=== PATIENT | male | born 1985 | race Caucasian/White ===

== ENCOUNTER 2017-01-27 19:42 | Emergency (ER) | payer SELFPAY ==
[2017-01-27 19:45] VITALS: BP 134/74; PULSE 82; RESP 16; TEMP 99.2; O2SAT 99
[2017-01-27] MEDS ORDERED: PROPARACAINE HCL 0.5% OPHT SOLN 15 ML BTL EACH EYE ONE (21:15)
[2017-01-27] MEDS ORDERED: TETANUS/DIPHTHERIA TOXOID ADULT 0.5 ML VIAL IM ONE (21:15)
--- NOTE | 2017-01-27 21:17 | PD ---
HPI Chief Complaint: Eye Problems/Injury Time Seen by Provider: 21:13 Travel History International Travel<30 days: No Contact w/Intl Traveler<30days: No Traveled to known affect area: No History of Present Illness HPI 31-year-old male presents emergency Department with complaints of left eye pain. He states that is been bothering her now for 2 days. He has had clear draining during the day and some mucus in the morning. Positive for body sensation. Minimal blurred vision. He denies any trauma. He does work with signs but wears protective glasses. He denies glasses or contacts. No recent illness. He has not had a tetanus shot over 5 years. PFSH Past Medical History Medical History: Denies Significant Hx Diminished Hearing: No Tetanus Vaccination: > 5 Years Past Surgical History Surgical History: No Previous Surgery Social History Alcohol Use: No Tobacco Use: No Substance Use: No Allergies-Medications (Allergen,Severity, Reaction): Coded Allergies: No Known Allergies (Unverified , 01/27/17) Reported Meds & Prescriptions Reported Meds & Active Scripts Active Lortab (Hydrocodone-Acetaminophen) 5-325 Mg Tab 1 Tab PO Q4H PRN Tobrex Opth Oint (Tobramycin Sulfate) 0.3 % Oint 1 Applic LEFT EYE QID Review of Systems Except as stated in HPI: all other systems reviewed are Neg Eyes: Positive: Blurred Vision, Drainage, Redness, Foreign Body Sensation, Pain , Tearing, Visual changes, No: Diploplia, Photophobia, Blindness Physical Exam Narrative GENERAL: Well-developed, well-nourished in no acute distress. Nontoxic appearing. HEAD: Normocephalic, atraumatic. EYES: Pupils equal round and reactive. Extraocular motions intact. No scleral icterus. No injection or drainage in the right eye. The left eye is injected. He has clear tearing. There is a foreign-body noted in the central vision of the left eye. Lids are flipped and no foreign body seen under the lids. I have removed the foreign body with a contact applicator. There is a remaining rust ring which has been 80% removed with an 18-gauge needle. Fluorescein stain reveals a large corneal defect from the foreign body removal. No Jody sign. ENT: TMs clear without erythema. The external auditory canals clear. Nose: clear . Posterior pharynx is pink and moist. No tonsillar edema or exudate. Uvula midline. Airway patent. NECK: Trachea midline.Supple, nontender, moves head freely. No central bony tenderness or spasm. CARDIOVASCULAR: Regular rate and rhythm without murmurs, gallops, or rubs. RESPIRATORY: Clear to auscultation. Breath sounds equal bilaterally. No wheezes , rales, or rhonchi. GASTROINTESTINAL: Abdomen soft, non-tender, nondistended. No hepato-splenomegaly , or palpable masses. No guarding. EXTREMITIES: No clubbing, cyanosis, or edema. No joint tenderness, effusion, or edema noted. BACK: Nontender without deformity or crepitance. No flank tenderness. Data Data Last Documented VS Vital Signs Date Time Temp Pulse Resp B/P Pulse Ox O2 Delivery O2 Flow Rate FiO2 01/27/17 20:56 18 01/27/17 19:45 99.2 82 134/74 99 Room Air Orders Tetanus/Diphtheria Tox Adult (Tetanus/Di (01/27/17 21:15) Proparacaine 0.5% Opth Soln (Alcaine 0.5 (01/27/17 21:15) Tobramycin 0.3% Opth Oint (Tobrex 0.3% O (01/27/17 21:45) Acetamin-Hydrocod 325-5 Mg ([place] 5-325 (01/27/17 21:45) MDM Medical Decision Making Medical Screen Exam Complete: Yes Emergency Medical Condition: Yes Medical Record Reviewed: Yes Differential Diagnosis MDM: High Differential diagnoses: Acute conjunctivitis (bacterial, viral, allergic, traumatic), glaucoma, iritis, traumatic globe injury, foreign body, corneal abrasion, corneal ulcer, diabetic retinopathy, photokeratitis, herpes keratitis , CMV retinitis Narrative Course Patient's tetanus status updated. Patient's given tobramycin ophthalmic ointment to the eye. Patient had a foreign body in the left eye which was removed but he has a remaining rust ring. He is aware that there is a rust ring and will need to have this removed by the collection systems modeler. He is referred to the collection systems modeler tomorrow. This is left eye foreign body removal, rust ring Procedures Procedure Narrative Left eye foreign body: 2 drops of Alcaine are instilled in the left eye. Using a cotton tip applicator the foreign body is removed. There is a remaining rust ring. Approximately 80% of the rust ring has been removed using an 18-gauge needle. I have not been able to remove the rust ring completely. The patient is aware of this and will follow-up with ophthalmology. Diagnosis Primary Impression: left eye foreign body removal Additional Impression: Corneal rust ring of left eye Referrals: Audrey Cervantes MD 1 day Patient Instructions: General Instructions Additional Instructions: Rest. Cool compresses Medications as directed Follow-up with Dr. Cervantes tomorrow Return to the ER if any problems. Med/Other Pt SpecificInfo: Prescription(s) given Scripts Hydrocodone-Acetaminophen (Lortab)5-325 Mg Tab1 Tab PO Q4H PRN (PAIN) #12 TAB Prov:Sunny Morales MD 01/27/17 Tobramycin Opth Oint (Tobrex Opth Oint)0.3 % Oint1 Applic LEFT EYE QID #1 TUBE Prov:Sunny Morales MD 01/27/17 Disposition: 01 DISCHARGE HOME Condition: Stable Neil Becker Jan 27, 2017 21:17
[2017-01-27] MEDS ORDERED: HYDR-3533 PO (21:32)
[2017-01-27] MEDS ORDERED: TOBR.3%O LEFT EYE (21:32)
[2017-01-27] MEDS ORDERED: ACETAMINOPHEN/HYDROcodone 325 MG/5 MG TAB PO ONE (21:45)
[2017-01-27] MEDS ORDERED: TOBRAMYCIN SULFATE 0.3% OPTH OINT 3.5 GM TUBE LEFT EYE ONE (21:45)
[2017-01-28] MEDS ORDERED: TYLE325T PO (10:23)
[2017-01-31] MEDS ORDERED: IBUP200C PO (15:24)
[2017-02-03] MEDS ORDERED: ERYTOIN10 LEFT EYE (15:40)
== END 2017-01-27 22:10 | disposition home or self-care (01) ==
LOC: NEPD 19:42
DX: T15.92XA Foreign body on external eye, part unspecified, left eye, initial encounter (principal); X58.XXXA Exposure to other specified factors, initial encounter; Y93.9 Activity, unspecified; Y92.9 Unspecified place or not applicable; Y99.8 Other external cause status
CPT/HCPCS: 65205; 90714; 96372